=== PATIENT | female | born 1950 | race Caucasian/White ===

== ENCOUNTER → 2016-11-03 | Outpatient (CLI) | payer OTHER ==
--- NOTE | 2016-11-03 14:22 | DIAGNOSTIC IMAGING REPORT ---
TWO VIEW CHEST CLINICAL HISTORY: Chronic cough. FINDINGS: PA and lateral chest radiographs are compared to study dated 11/19/2015. The cardiomediastinal silhouette is unremarkable. The lungs and pleural spaces are clear. There is no pneumothorax. The skeletal structures are osteopenic. The bony thorax appears intact. IMPRESSION: No active disease in the chest. Electronically signed by: Prabhjot Contreras M.D. 11/03/2016 2:21 PM Dictated Date/Time: 11/03/2016 2:20 PM
== END | disposition home or self-care (01) ==
LOC: C.LABBC 13:57
PROVIDERS: ATTEND Internal Medicine
DX: J45.909 Unspecified asthma, uncomplicated (principal); R05 Cough

== ENCOUNTER → 2017-04-26 | Outpatient (CLI) | payer OTHER ==
--- NOTE | 2017-04-26 15:15 | DIAGNOSTIC IMAGING REPORT ---
SINUS CT CT DOSE: 559.25 mGy.cm HISTORY: CHRONIC COUGH EVALUATING FOR SINOBRONCHITIS TECHNIQUE: Multiaxial CT images of the paranasal sinuses were performed and reformatted in the coronal plane without the use of contrast. COMPARISON: None. FINDINGS: The frontal sinuses are clear. Partial opacification with fluid levels within the bilateral ethmoid air cells. Moderate fluid and mucosal thickening within the left maxillary sinus. Small focal area of mucosal thickening within the right posterior maxillary sinus. Mild mucosal thickening within the sphenoid sinuses. The mastoid air cells are clear. The right ostiomeatal patent. The left ethmoid infundibulum is opacified. Minimal right nasal septal deviation. The orbits and visualized brain parenchyma are unremarkable. IMPRESSION: Acute on chronic paranasal sinusitis as described above most pronounced within the left maxillary sinus. Electronically signed by: Jose David Mcnulty M.D. 04/26/2017 3:14 PM Dictated Date/Time: 04/26/2017 3:09 PM
== END | disposition home or self-care (01) ==
LOC: C.CTS 14:56
PROVIDERS: ATTEND Physician Assistant Medical
DX: J45.909 Unspecified asthma, uncomplicated (principal); R05 Cough; J32.9 Chronic sinusitis, unspecified

== ENCOUNTER → 2017-05-22 | Outpatient (CLI) | payer OTHER ==
--- NOTE | 2017-05-22 15:52 | MAMMOGRAPHY REPORT ---
BILATERAL DIGITAL SCREENING MAMMOGRAM WITH CAD: 05/22/2017 CLINICAL HISTORY: Routine screening. Patient has no complaints. TECHNIQUE: Bilateral CC and MLO views were obtained. Current study was also evaluated with a Compute r Aided Detection (CAD) system. COMPARISON: Comparison is made to exams dated: 03/03/2016 mammogram, 02/25/2015 mammogram, 02/25/2015 ul trasound, 08/26/2014 ultrasound, 08/26/2014 mammogram, and 08/13/2014 mammogram - [facility]. BREAST COMPOSITION: There are scattered areas of fibroglandular density in both breasts. FINDINGS: The parenchymal pattern is unchanged. No developing mass, architectural distortion or clus ter of suspicious microcalcifications is seen in either breast. IMPRESSION: ACR BI-RADS CATEGORY 2: BENIGN There is no mammographic evidence of malignancy. A 1 year screening mammogram is recommended. The pa tient will receive written notification of the results. Approximately 10% of breast cancers are not detected with mammography. A negative mammographic report should not delay biopsy if a clinically suggestive mass is present. Luisa Khanna M.D. ay/:05/22/2017 15:27:57 Hebrew Cantor: Cecille Sapp, [facility] letter sent: Normal 1/2 BI-RADS Code: ACR BI-RADS Category 2: Benign
== END | disposition home or self-care (01) ==
LOC: C.MAMM 13:58
PROVIDERS: ATTEND Obstetrics & Gynecology
DX: Z12.31 Encounter for screening mammogram for malignant neoplasm of breast (principal)

== ENCOUNTER → 2017-05-31 | Outpatient (CLI) | payer OTHER ==
--- NOTE | 2017-05-31 14:32 | DIAGNOSTIC IMAGING REPORT ---
CT SCAN OF THE PARANASAL SINUSES CLINICAL HISTORY: Chronic sinusitis. COMPARISON STUDY: CT scan of the paranasal sinuses dated 04/26/2017. TECHNIQUE: High-resolution CT scan of the paranasal sinuses is performed. Images are reviewed in the axial, sagittal, and coronal planes. IV contrast was not administered for this examination. A dose lowering technique was utilized adhering to the principles of ALARA. The examination is performed using the fusion protocol. CT DOSE: 720.49 mGycm FINDINGS: Maxillary antra: Trace mucosal thickening is seen bilaterally. Thin bony septations are seen within the maxillary antra dependently. Anterior ethmoid sinuses: Moderate mucosal thickening seen bilaterally. Posterior ethmoid sinuses: Mild mucosal thickening on the right. Clear on the left. Sphenoid sinuses: Trace mucosal thickening is seen bilaterally. Frontal sinuses: Clear. Ostiomeatal complexes: Patent bilaterally. Frontoethmoidal and sphenoethmoidal recesses: The frontoethmoidal recesses and the left sphenoethmoidal recess are significantly narrowed by mucosal thickening. Carotid arteries: The carotid arteries are covered and without septal attachments. Ethmoid roofs: The ethmoid roofs are symmetric. Nasal turbinates: Normal in appearance. Nasal septum: There is minimal rightward deviation of the bony nasal septum. Optic nerves: Covered. Orbits: The bony orbits are intact. Orbital contents are normal in appearance. Calvarium: The skeletal structures are osteopenic. The imaged calvarium is normal in appearance Mastoid air cells: Well pneumatized. Brain parenchyma: Partially visualized brain parenchyma is within normal limits. IMPRESSION: Paranasal sinus disease as above. This appears modestly improved from 04/26/2017. Electronically signed by: Prabhjot Contreras M.D. 05/31/2017 2:31 PM Dictated Date/Time: 05/31/2017 2:24 PM
== END | disposition home or self-care (01) ==
LOC: C.CTS 13:47
DX: J32.9 Chronic sinusitis, unspecified (principal); F33.1 Major depressive disorder, recurrent, moderate

== ENCOUNTER → 2017-05-31 | Outpatient (CLI) | payer OTHER | END | disposition home or self-care (01) | LOC: C.LAB 13:50 | PROVIDERS: ATTEND Psychiatry & Neurology Psychiatry | DX: F33.1 Major depressive disorder, recurrent, moderate (principal) ==

== ENCOUNTER → 2017-07-12 | Outpatient (CLI) | payer OTHER | END | disposition home or self-care (01) | LOC: C.LAB1850 16:10 | PROVIDERS: ATTEND Internal Medicine Pulmonary Disease | DX: R05 Cough (principal) ==

== ENCOUNTER → 2017-10-02 | Outpatient (CLI) | payer OTHER | END | disposition home or self-care (01) | LOC: C.LABSPEC 09:44 | PROVIDERS: ATTEND Internal Medicine Pulmonary Disease | DX: A49.2 Hemophilus influenzae infection, unspecified site (principal); R05 Cough ==

== ENCOUNTER → 2017-10-04 | Outpatient (CLI) | payer OTHER ==
--- NOTE | 2017-10-04 14:09 | DIAGNOSTIC IMAGING REPORT ---
SINUSES-MAXILLOFACIAL W/O HISTORY: 67 years-old Female J45.909 Reactive airway skydotiE23 Chronic pjlzbT30.89 Allergic COMPARISON: CT sinus 05/31/[address] maxillofacial 04/26/2017 TECHNIQUE: Multiple axial CT images of the maxillofacial bones were obtained without contrast FINDINGS: There is mild left and mild to moderate right maxillary mucosal thickening. Moderate mucosal thickening of the ethmoid air cells with mild inferior frontal sinus mucosal thickening. Mild bilateral sphenoid sinus mucosal thickening is also present with narrowing of the bilateral sphenoethmoidal recesses. Mucosal thickening of the bilateral frontoethmoidal recesses is also present. Mucosal thickening causes narrowing of the right maxillary ostiomeatal unit. The left maxillary ostiomeatal unit is patent. No large tammy bullosa or Lelo cell. Elicia osmar appears normal. There is mild rightward bowing and spurring of the nasal septum. Mucosal thickening on the right maxillary sinus has slightly worsened and disease on the left has slightly improved. Ethmoid sinus disease is stable to slightly progressed. No acute fracture or dislocation of the facial bones. The mastoid air cells and middle ear cavities are clear. Imaged intracranial structures demonstrate no acute abnormality. Soft tissues are unremarkable. IMPRESSION: Paranasal sinus disease as above most pronounced in the maxillary and ethmoid sinuses with only minimal changes from comparison study 05/31/2017. The above report was generated using voice recognition software. It may contain grammatical, syntax or spelling errors. Electronically signed by: Bruno Baker M.D. 10/04/2017 2:08 PM Dictated Date/Time: 10/04/2017 2:03 PM
== END | disposition home or self-care (01) ==
LOC: C.CTS 13:38
PROVIDERS: ATTEND Internal Medicine Pulmonary Disease
DX: J01.40 Acute pansinusitis, unspecified (principal); J30.89 Other allergic rhinitis; A49.2 Hemophilus influenzae infection, unspecified site; R05 Cough; J45.909 Unspecified asthma, uncomplicated

== ENCOUNTER → 2017-10-10 | Outpatient (CLI) | payer OTHER ==
[2017-10-10 09:30] LABS: BASO % 0.9 %; BASO ABS # 0.03 K/uL (0-0.2); COMPLETE YES; EOS % 3.4 %; HEMATOCRIT 43.9 % (37-47); LYMPH % 37.5 %; LYMPH ABS # 1.23 K/uL (1.2-3.4); MEAN CORPUSCULAR HEMOGLOBIN 32.3 pg (25-34); MEAN CORPUSCULAR HGB CONC 33.9 g/dl (32-36); MEAN PLATELET VOLUME 11.3 fL (7.4-10.4); MONO % 8.8 %; NEUT % 49.4 %; PLATELET COUNT 177 K/uL (130-400); RED BLOOD COUNT 4.62 M/uL (4.2-5.4); WHITE BLOOD COUNT 3.28 K/uL (4.8-10.8)
[2017-10-10 09:55] LABS: ALT/SGPT 26 U/L (12-78); AST/SGOT 16 U/L (15-37); BLOOD UREA NITROGEN 13 mg/dl (7-18); BUN/CREATININE RATIO 17.6 (10-20); CALCIUM 8.8 mg/dl (8.5-10.1); CARBON DIOXIDE 29 mmol/L (21-32); CHLORIDE 107 mmol/L (98-107); CHOLESTEROL 202 mg/dl (0-200); CREATININE 0.72 mg/dl (0.60-1.20); GLUCOSE 84 mg/dl (70-99); POTASSIUM 3.8 mmol/L (3.5-5.1); SODIUM 141 mmol/L (136-145); TRIGLYCERIDES 112 mg/dl (0-150); VERY LOW DENSITY LIPOPROT CALC 22 mg/dl
[2017-10-10 10:05] LABS: ALB/GLOB RATIO 1.2 (0.9-2); ALKALINE PHOSPHATASE 48 U/L (45-117); CHOLESTEROL/HDL RATIO 3.5; HDL CHOLESTEROL 57 mg/dl; LDL CHOLESTEROL CALCULATED 123 mg/dl
== END | disposition home or self-care (01) ==
LOC: C.LAB 07:42
PROVIDERS: ATTEND Internal Medicine
DX: I10 Essential (primary) hypertension (principal); E78.5 Hyperlipidemia, unspecified; J45.909 Unspecified asthma, uncomplicated; R05 Cough; D72.819 Decreased white blood cell count, unspecified; K21.9 Gastro-esophageal reflux disease without esophagitis; A49.2 Hemophilus influenzae infection, unspecified site

== ENCOUNTER → 2018-02-12 | Outpatient (CLI) | payer OTHER ==
--- NOTE | 2018-02-12 15:56 | DIAGNOSTIC IMAGING REPORT ---
R HIP UNILATERAL 2 VIEWS HISTORY: 68 years-old Female M21.70 Unequal leg length (acquired)M25.551 Right hip painrightR acute right hip pain without known injury COMPARISON: Leg length study 10/13/2015 TECHNIQUE: 2 views of the right hip FINDINGS: No significant degenerative changes about the right femoral acetabular joint. No evidence of avascular necrosis, acute fracture or dislocation. The imaged right hemipelvis appears intact. IMPRESSION: No acute fracture or dislocation. The above report was generated using voice recognition software. It may contain grammatical, syntax or spelling errors. Electronically signed by: Bruno Baker M.D. 02/12/2018 3:54 PM Dictated Date/Time: 02/12/2018 3:53 PM
== END | disposition home or self-care (01) ==
LOC: C.RADBC 14:48
PROVIDERS: ATTEND Family Medicine Adult Medicine
DX: M25.551 Pain in right hip (principal); M21.70 Unequal limb length (acquired), unspecified site

== ENCOUNTER → 2018-05-24 | Outpatient (CLI) | payer OTHER ==
[~2018-05-24] MED LIST: AMLO5TAB3 PO; ASPI81TA28 PO; CALC600T9 PO; CYAN500T13 PO; MOME200A INH; MULT-506 PO; OMEG10007 PO; SERT-234 PO; TRAZ50TA35 PO; VNTHFA/IN INH
--- NOTE | 2018-05-24 15:40 | MAMMOGRAPHY REPORT ---
BILATERAL DIGITAL SCREENING MAMMOGRAM TOMOSYNTHESIS WITH CAD: 05/24/2018 CLINICAL HISTORY: Routine screening. Patient has no complaints. TECHNIQUE: The study was acquired using full field digital technology and interpreted from soft copy. Breast tomosynthesis in addition to standard 2D mammography was performed. Current study was also ev aluated with a Computer Aided Detection (CAD) system. COMPARISON: Comparison is made to exams dated: 05/22/2017 mammogram, 03/03/2016 mammogram, 02/25/2015 ma mmogram, 08/26/2014 mammogram, 08/13/2014 mammogram, and 06/11/2013 mammogram - [facility]. BREAST COMPOSITION: There are scattered areas of fibroglandular density in both breasts. FINDINGS: No suspicious masses, calcifications, or areas of architectural distortion are noted in either breast . There has been no significant interval change compared to prior exams. IMPRESSION: ACR BI-RADS CATEGORY 1: NEGATIVE There is no mammographic evidence of malignancy. A 1 year screening mammogram is recommended.( 019) The patient will receive written notification of the results. Some breast cancers are not detected with mammography. A negative mammographic report should not akshat y biopsy if a clinically suggestive mass is present. Jael Rodriguez M.D. ah/:05/24/2018 14:53:20 Aba Tutor: RT Bryon(R)(M), [facility] letter sent: Normal 1/2 BI-RADS Code: ACR BI-RADS Category 1: Negative
== END | disposition home or self-care (01) ==
LOC: C.MAMM 13:32
PROVIDERS: ATTEND Obstetrics & Gynecology
DX: Z12.31 Encounter for screening mammogram for malignant neoplasm of breast (principal)

== ENCOUNTER → 2018-06-06 | Day surgery (SDC) | payer OTHER ==
[2018-05-30 14:24] VITALS: Ht 165.1 cm; Wt 86.4 kg
[~2018-06-06] VITALS: Ht 165.1 cm; Wt 86.4 kg
[~2018-06-06] MED LIST changes: +LIDOCAINE HCL 2% 2 ML VIAL (20MG/ML) ONE; +MIDAZOLAM HCL 1 MG/ML 2ML VIAL ONE; +ONDANSETRON INJ 2 MG/ML 2 ML VIAL ONE; +PROPOFOL IV EMULSION 10 MG/ML 20 ML VIAL ONE
--- NOTE | 2018-06-06 12:58 | Endo History and Physical ---
History & Physical Date of Service: Jun 06, 2018. Chief Complaint: History of colon polyps Referring Physician: Dr. Adrian Haas History of Present Illness 68 yo CF who presents for colonoscopy secondary to history of colon polyps. Past Surgical History Hx Cardiac Surgery: No Hx Internal Defibrillator: No Hx Pacemaker: No Hx Abdominal Surgery: Yes (OVARIAN CYSTECTOMY) Hx of Implantable Prosthesis: No Hx Post-Op Nausea and Vomiting: No Hx Cancer Surgery: No Hx Orthopedic: No Hx Urinary Tract Surgery: No Family History IBD Social History Smoking Status: Former Smoker Hx Substance Use: No Hx Alcohol Use: No Allergies Coded Allergies: Dust Mite Extract (Verified Allergy, Unknown, PER ALLERGY TESTING, 05/30/18) Lactose Intolerance (GI) (Verified Allergy, Unknown, GI UPSET, 05/30/18) NO KNOWN DRUG ALLERGIES (Verified Allergy, Unknown, NONE, 05/30/18) Current Medications Reported Home Medications Medications Dose Route/Sig Max Daily Dose Days Date Category [place]-3 (Fish Oil) 1 Ea Cap 1 Cap PO QAM 05/30/18 Reported Vitamin B12 500MCG (Cyanocobalamin) 500 Mcg Tab 500 Mcg PO QAM 05/30/18 Reported Multivitamin (Multivitamins) Tab 1 Tab PO QAM 05/30/18 Reported Calcium + D (Calcium Carbonate-Vitamin D) 1 Tab Tab 1 Tab PO QAM 05/30/18 Reported Aspirin Ec (Aspirin) 81 Mg Tab 81 Mg PO 3XWEEK 05/30/18 Reported Ventolin Hfa (Albuterol) 200 Puffs/31528 Mcg Aers 2 Puffs INH Q6H PRN 05/30/18 Reported Dulera 200/5 Mcg (Mometasone Furoate-Formoterol) 1 Aer Aer 1 Aer INH QAM PRN 05/30/18 Reported Trazodone (Trazodone HCl) 50 Mg Tab 50 Mg PO HS 05/30/18 Reported Norvasc (Amlodipine Besylate) 5 Mg Tab 5 Mg PO QAM 05/30/18 Reported Zoloft (Sertraline HCl) 100 Mg Tab 200 Mg PO QAM 05/30/18 Reported Vital Signs Weight (Kilograms): 86.36 Height (Feet): 5 Height (Inches): 5 Physical Exam General Appearance: WD/WN, no apparent distress Respiratory/Chest: Auscultation: breath sounds normal Cardiovascular: Heart Auscultation: RRR Abdomen: Bowel Sounds: normal Inspection & Palpation: soft, non-distended, no tenderness, guarding & rebound Assessment and Plan Assessment: 68 yo CF who presents for colonoscopy secondary to history of colon polyps. Plan: Proceed with colonoscopy.
--- NOTE | 2018-06-06 14:48 | Discharge Instructions ---
Endoscopy Patient Instructions Date / Procedure(s) Performed Jun 06, 2018. Colonoscopy Allergy Information Coded Allergies: Dust Mite Extract (Verified Allergy, Unknown, PER ALLERGY TESTING, 05/30/18) Lactose Intolerance (GI) (Verified Allergy, Unknown, GI UPSET, 05/30/18) NO KNOWN DRUG ALLERGIES (Verified Allergy, Unknown, NONE, 05/30/18) Discharge Date / Findings Jun 06, 2018. Internal hemorrhoids Medication Instructions Stopped Medication(s): Patient stopped her aspirin. OK to resume all medications today as prescribed Reported Home Medications Medications Dose Route/Sig Max Daily Dose Days Date Category [place]-3 (Fish Oil) 1 Ea Cap 1 Cap PO QAM 05/30/18 Reported Vitamin B12 500MCG (Cyanocobalamin) 500 Mcg Tab 500 Mcg PO QAM 05/30/18 Reported Multivitamin (Multivitamins) Tab 1 Tab PO QAM 05/30/18 Reported Calcium + D (Calcium Carbonate-Vitamin D) 1 Tab Tab 1 Tab PO QAM 05/30/18 Reported Aspirin Ec (Aspirin) 81 Mg Tab 81 Mg PO 3XWEEK 05/30/18 Reported Ventolin Hfa (Albuterol) 200 Puffs/02712 Mcg Aers 2 Puffs INH Q6H PRN 05/30/18 Reported Dulera 200/5 Mcg (Mometasone Furoate-Formoterol) 1 Aer Aer 1 Aer INH QAM PRN 05/30/18 Reported Trazodone (Trazodone HCl) 50 Mg Tab 50 Mg PO HS 05/30/18 Reported Norvasc (Amlodipine Besylate) 5 Mg Tab 5 Mg PO QAM 05/30/18 Reported Zoloft (Sertraline HCl) 100 Mg Tab 200 Mg PO QAM 05/30/18 Reported Provider Instructions Activity Restrictions - No exercising or heavy lifting for 24 hours. - Do not drink alcohol the day of the procedure. - Do not drive a car or operate machinery until the day after the procedure. - Do not make any important decisions or sign important papers in 24 hours after the procedure. Following Day: - Return to full activity which may include returning to work/school. Diet Start your diet with liquids and light foods (jello, soup, juice, toast). Then eat your usual diet if not nauseated. Treatment For Common After Affects For mild abdominal pain, bloating, or excessive gas: - Rest - Eat lightly - Lie on right side Follow-Up Information Follow-up with Dr. Adrian Haas as scheduled Anesthesia Information What You Should Know You have had a procedure that required some medicine to reduce anxiety and discomfort. This treatment is called moderate sedation. After receiving the treatment, you may be sleepy, but you will be able to breathe on your own. The effects of the treatment may last for several hours. Follow these instructions along with Activity/Diet recommendations noted above: * Do NOT do anything where dizziness or clumsiness would be dangerous. * Rest quietly at home today, then you can be up and about tomorrow. * Have a responsible person stay with you the rest of today. * You may have had an I.V. today. If so, you may take the dressing off later today. Recommendations Call your doctor if: * Trouble breathing * Continuous vomiting for more than 24 hours * Temperature above 101 degrees * Severe abdominal pain or bloating * Pain not relieved by pain medicine ordered * There is increased drainage or redness from any incision * A large amount of rectal bleeding greater than 2-3 tablespoons. (If you had a polyp/s removed or have hemorrhoids, a small amount of blood - from the rectum is to be expected.) * You have any unanswered questions or concerns. IN THE EVENT OF A SERIOUS EMERGENCY, GO TO THE NEAREST EMERGENCY ROOM Your discharge instructions were prepared by provider Lawrence Wade. Patient Instructions Signature Page Arielle Mariscal Patient (or Guardian) Signature/Date: I have read and understand the instructions given to me by my caregivers. Caregiver/RN/Doctor Signature/Date: The above-named patient and/or guardian has received patient instructions on this date. + Original Patient Signature Page (only) stays with chart. Please make copy for patient.
--- NOTE | 2018-06-06 14:53 | GI REPORT ---
Patient Name: Arielle Mariscal Procedure Date: 06/06/2018 2:06 PM Date of : 1950 Admit Type: Outpatient Age: 68 Gender: Female Attending MD: Lawrence Wade DO Procedure: Colonoscopy Providers: Lawrence Wade DO Referring MD: Adrian Haas Md Indications: High risk colon cancer surveillance: Personal history of colonic polyps Medicines: Monitored Anesthesia Care Complications: No immediate complications. Estimated Blood Loss: Estimated blood loss: none. Procedure: Pre-Anesthesia Assessment: - Prior to the procedure, a History and Physical was performed, and patient medications and allergies were reviewed. The patient's tolerance of previous anesthesia was also reviewed. The risks and benefits of the procedure and the sedation options and risks were discussed with the patient. All questions were answered, and informed consent was obtained. Prior Anticoagulants: The patient has taken aspirin, last dose was 5 days prior to procedure. ASA Grade Assessment: II - A patient with mild systemic disease. After reviewing the risks and benefits, the patient was deemed in satisfactory condition to undergo the procedure. After I obtained informed consent, the scope was passed under direct vision. Throughout the procedure, the patient's blood pressure, pulse, and oxygen saturations were monitored continuously. The scope was introduced through the anus and advanced to the terminal ileum. The colonoscopy was performed without difficulty. The patient tolerated the procedure well. The quality of the bowel preparation was good. The terminal ileum, ileocecal valve, appendiceal orifice, and rectum were photographed. Findings: The perianal and digital rectal examinations were normal. Non-bleeding internal hemorrhoids were found during retroflexion. The hemorrhoids were small. Impression: - Non-bleeding internal hemorrhoids. - No specimens collected. Recommendation: - Resume previous diet. - Continue present medications. - Repeat colonoscopy in 5 years for surveillance. - Return to primary care physician as previously scheduled. Lawrence Wade DO 06/06/2018 2:52:29 PM This report has been signed electronically. Note Initiated On: 06/06/2018 2:06 PM Number of Addenda: 0 I attest to the content of the Intraoperative Record and orders documented therein, exceptions below {[id number]}
[2018-06-06 15:11] VITALS: BP 160/89; PULSE 61; O2SAT 98
--- NOTE | 2018-06-06 15:35 | Anesthesiology Progress Note ---
Anesthesia Post Op Note Date & Time Jun 06, 2018 at 15:34 Vital Signs Pain Intensity: 0 Vital Signs Past 12 Hours Date Time Temp Pulse Resp B/P (MAP) Pulse Ox O2 Delivery O2 Flow Rate FiO2 06/06/18 15:11 61 18 160/89 (112) 98 Room Air 06/06/18 14:59 60 18 162/90 (114) 98 Room Air 06/06/18 14:44 36.3 65 16 177/88 (117) 96 Room Air 06/06/18 13:08 36.3 57 16 178/81 (113) 97 Room Air Notes Mental Status: alert / awake / arousable, participated in evaluation Pt Amnestic to Procedure: Yes Nausea / Vomiting: adequately controlled Pain: adequately controlled Airway Patency, RR, SpO2: stable & adequate BP & HR: stable & adequate Hydration State: stable & adequate Anesthetic Complications: no major complications apparent
== END | disposition home or self-care (01) ==
LOC: C.GI 12:40
PROVIDERS: ATTEND Internal Medicine
DX: Z12.11 Encounter for screening for malignant neoplasm of colon (principal); K64.8 Other hemorrhoids; Z86.010 Personal history of colon polyps; J45.909 Unspecified asthma, uncomplicated; Z87.891 Personal history of nicotine dependence; Z79.82 Long term (current) use of aspirin